=== PATIENT | male | born 1965 ===

== ENCOUNTER 2018-11-09 07:09 | Outpatient (CLI) | payer OTHER | END 2018-11-09 12:11 | disposition home or self-care (01) | LOC: LAB 07:09 | DX: J11.1 Influenza due to unidentified influenza virus with other respiratory manifestations (principal); R10.9 Unspecified abdominal pain; J98.8 Other specified respiratory disorders ==

== ENCOUNTER 2018-11-11 11:48 | Outpatient (CLI) | payer OTHER | END 2018-11-11 12:10 | disposition home or self-care (01) | LOC: LAB 11:48 | DX: D69.6 Thrombocytopenia, unspecified (principal) ==